=== PATIENT | female | born 1965 | race Caucasian/White ===

== ENCOUNTER 2017-09-05 18:42 | Emergency (ER) | payer OTHER ==
[~2017-09-05] VITALS: Ht 177.8 cm; Wt 67.3 kg
[2017-09-05] MEDS ORDERED: MOTRIN600 MG PO (20:50)
[2017-09-05] MEDS ORDERED: NORCO 5/3251 TABLET PO (20:50)
[2017-09-05 20:59] VITALS: BP 154/87
== END 2017-09-05 21:00 | disposition home or self-care (01) ==
LOC: EME 18:42
DX: M79.672 Pain in left foot (principal); M79.89 Other specified soft tissue disorders; F17.200 Nicotine dependence, unspecified, uncomplicated
CPT/HCPCS: 73630; 93971; 99281; 99283